=== PATIENT | female | born 1955 | race African-American/Black ===

== ENCOUNTER 2017-05-13 08:50 | Observation (INO) ==
--- NOTE | 2017-05-13 09:26 | EKG Report ---
Stationary ECG Study [facility] ER Test Date: 05/13/2017 8:57:36 AM Pat Name: YUAN JOHNSON Department: Room: Gender: F Chemical Analyst: : 1955 Requested by: Dallin Price Order Number: [id number] Reading MD: AROLDO CISNEROS Intervals [place] Rate: 63 P: 37 TN: 154 QRS: 73 QRSD: 92 T: 153 QT: 376 QTc: 383 Interpretive Statements SINUS RHYTHM POSSIBLE LEFT ATRIAL ENLARGEMENT SEPTAL INFARCT, AGE UNDETERMINED T WAVE ABNORMALITY, POSSIBLE LATERAL ISCHEMIA Electronically Signed On 05-13-17 13:11:17 CDT by AROLDO CISNEROS [email or web address]
[2017-05-13 09:50] LABS: Basophils % 0.5 % (0.0-0.8); Eosinophils # 0.1 10*3/uL (0.0-0.87); Eosinophils % 1.3 % (0.00-10.9); Hematocrit 45.9 VOL% (35.7-47.0); Hemoglobin 15.5 GM/DL (12.0-16.0); Immature Granulocytes % 0.4 %; Immature Granulocytes Absolute 0.02 #; Lymphocytes # 2.3 10*3/uL (1.4-4.0); Lymphocytes % 41.4 % (21.3-54.2); Mean Corpuscular HGB Conc 33.8 GM/DL (32-36); Mean Corpuscular Hemoglobin 32 PG (27-34); Mean Corpuscular Volume 93.3 FL (87-102); Mean Platelet Volume 12.1 FL (9.6-12.0); Monocytes # 0.6 10*3/uL (0.11-0.8); Monocytes % 10.4 % (1.7-12.7); Neutrophils # 2.5 10*3/uL (1.4-7.4); Platelet Count 190 T/CUMM (130-400); Red Blood Count 4.92 MC/CUMM (3.8-5.5); Red Cell Distribution Width 13.2 % (9.3-17.3); White Blood Count 5.5 T/CUMM (4-12)
[2017-05-13 10:26] LABS: Albumin 3.9 G/DL (3.4-5.0); Bilirubin,Total 0.8 MG/DL (0.2-1.0); Calcium 9.4 MG/DL (8.5-10.1); Osmolality,Calculated 279.4 MOS/KG (273-304); Potassium 3.7 MMOL/L (3.5-5.1); Total Protein 7.3 G/DL (6.4-8.3)
--- NOTE | 2017-05-13 10:35 | XRay Report ---
XR chest 1V portable Indication: Syncope, history of aortic dissection Comparison: Chest x-ray dated November 03, 2016 Technique: Single frontal view of the chest. Findings: Continued cardiomegaly status post sternotomy. No focal consolidation, pleural effusion, or pneumothorax. Visualized osseous and surrounding soft tissue structures appear grossly unchanged. IMPRESSION: Stable chest x-ray. Continued cardiomegaly without yahaira pulmonary edema. PROCEDURE INTERPRETED AT [facility] DEPARTMENT OF RADIOLOGY Final Report Signed by: Dr Meño Jane
[2017-05-13] MEDS ORDERED: SODIUM CHLORIDE 0.9% 1,000 ML IV STA (12:24)
--- NOTE | 2017-05-13 13:03 | CT Report ---
CT chest PE study Indication: Chest pain, elevated d-dimer, history of aortic dissection Comparison: Chest CT dated November 03, 2016 Technique: Multiple axial tomographic images of the chest were obtained after the administration of 100 cc Omnipaque 350 intravenous contrast. PE protocol followed. Coronal and sagittal maximum intensity projection images provided. Findings: Type A aortic dissection with aneurysmal dilatation of the ascending thoracic aorta measuring up to 6.3 cm appears similar to prior examination. Mild cardiomegaly. No segmental or larger pulmonary embolism demonstrated. Mild dependent change of the lungs present. No focal consolidation, pleural effusion, or pneumothorax. Status post sternotomy. Visualized upper abdomen demonstrates no acute abnormality. Visualized osseous and surrounding soft tissue structures appear grossly unchanged. IMPRESSION: No segmental or larger pulmonary embolism demonstrated. Grossly stable type A aortic dissection with aneurysmal dilatation of the ascending thoracic aorta. The CT exam was performed using one or more of the following dose reduction techniques: Automated exposure control, adjustment of the mA and/or kV according to patient size, or use of iterative reconstruction technique. PROCEDURE INTERPRETED AT [facility] DEPARTMENT OF RADIOLOGY Final Report Signed by: Dr Meño Jane
--- NOTE | 2017-05-13 13:41 | Emergency Department Note ---
Francisco Torres Manpreet, am scribing for, and in the presence of, Dallin Price Jr., MD 09:24. Albert Torres Marvin Jr., MD, personally performed the services described in this documentation, ascribed by Aris Singh in my presence, and it is both accurate and complete [id number] . Arrival - Arrival Chief Complaint: Chest Pain Stated Complaint: chest discomfort ED Nursing Triage Note: midsternal chest pain and left sided chest pain with NORRIS onset x 2 days with SOB Mode of Arrival: Ambulatory Limitations: No Limitations Source: Patient - History of Present Illness HPI Narrative: Pt is a 62 y/o female, with PMHx of HTN, who was advised to come to the ED by her physician. Pt states she has had dull and moderate chest discomfort that is on both sides of her chest for the past 6 days. The pain is intermittent and swallowing does something to the pain. Pt also feels like vomiting after swallowing. Pt also reports of being tired and RLQ abdominal pain the past 2 days that is now resolved. Pt states her throat is not sore. Pt was told to come to the ED because her PCP could only perform a EKG. No other pains/ complaints reported to the ED. Onset (ago): day(s) (2 days) Consistency: intermittent Severity: moderate Severity scale (1-10): 3 Date of Last Menstrual Period: margaret Allergies/Adverse Reactions: Allergies Allergy/AdvReac Type Severity Reaction Status Date / Time No Known Allergies Allergy Unverified 11/03/16 03:14 Home Medications: Home Medications Medication Instructions Recorded Confirmed Type Loratadine/Pseudoephedrine 1 each PO DAILY #10 tablet 11/03/16 Rx [Claritin-D 24 Hour Tablet] Review of System - Review of System 12 point system: reviewed and no additional remarkable complaints except as stated - Review of System Constitutional: Absent: chills, diaphoresis, fever Head/Ears/Nose/Throat: Absent: sore throat Respiratory: Absent: cough, respiratory distress Cardiovascular: Present: chest pain ("Chest discomfort"). Absent: dyspnea on exertion Gastrointestinal: Present: abdominal pain (The past 2 days but now resolved). Absent: nausea, vomiting, diarrhea Musculoskeletal: Absent: arm pain, back pain, neck pain Neurological: Absent: headache, numbness, paresthesias Medical,Surgical,& Family Hx - Medical History Cardio: History of: Hypertension, Cardiovascular Problems (aortic dissection that was repaired in [facility] 2012) - Social History Smoking Status: Never smoker Frequency of Alcohol Use: None Type of Drug Use: None Exam Physical Examination: General: Well-developed well-nourished, no apparent distress. Head: Normocephalic, atraumatic. Eyes: PERRLA, EOMI. Nose: No obvious acute deformities or discharge. Mouth: No obvious acute injury. Neck: Full range of motion without obvious pain. No midline tender to palpation. Lymphatic: no significant lymphadenopathy noted. Lungs: Clear to auscultation bilaterally, normal and equal air movement bilaterally, no obvious rales or wheezing. Heart: regular rate and rhythm, no obvious mummers. Chest wall: Slight tender to palpation which reproduces her pain noted. Abdomen: Soft nontender, nondistended, normal active bowel sounds. Very benign abdominal exam Skin: No obivous acute lesions noted Musculoskeletal: No gross deformities. Neurological: No focal findings, cranial nerves II through XII grossly normal. Psychiatric: Slightly anxious : Deferred Vital Signs: Vital Signs Temperature 98.1 F 05/13/17 08:52 Pulse Rate 61 05/13/17 09:15 Respiratory Rate 18 05/13/17 09:15 Blood Pressure 147/96 05/13/17 08:52 O2 Sat by Pulse Oximetry 100 05/13/17 09:14 Course Course Narrative: Differential diagnosis: Patient presents with chronic chest pain over the last couple of weeks. We will workup this chest pain but I think is highly unlikely to be an acute cardiac event, she is mildly anxious and she has had a previous aortic dissection. We will work this up using a d-dimer and x-rays as her screening test. The abdominal pain is resolved and physical exam is normal so no further workup for this at this time needed. Chest wall pain is a consideration, GE reflux, - Reevaluation(s) Reevaluation #1: Patient unchanged. I talked to the hospitalist to accept admission for further workup and evaluation. Time: 13:39 Results - Labs CBC & BMP: 05/13/17 09:44 05/13/17 09:44 Lab Results: I have reviewed the patients labs Labs: Laboratory Tests 05/13/17 09:23 D-Dimer, Quantitative 1.2 Laboratory Tests 05/13/17 09:44 Sodium 140 Potassium 3.7 Chloride 105 Carbon Dioxide 28 Anion Gap 10.7 BUN 15 Creatinine 1.00 GFR Calculation 75 BUN/Creatinine Ratio 15.00 Glucose 104 Calculated Osmolality 279.4 Calcium 9.4 Total Bilirubin 0.80 AST 11 ALT 19 Alkaline Phosphatase 50 Total Protein 7.3 Albumin 3.9 Globulin 3.4 Albumin/Globulin Ratio 1.1 Laboratory Tests 05/13/17 09:44 Troponin I < 0.015 - EKG EKG results: interpreted by ERMD (Heart rate 63, normal sinus rhythm, narrow complex QRS complexes without obvious acute ST changes) - Diagnostic Findings Procedure: Chest x-ray: report reviewed by me, image reviewed by me (Stable chest x-ray. Continued cardiomegaly without yahaira pulmonary edema.), CT - chest : report reviewed by me, image reviewed by me (CT Chest with con: No segmental or larger pulmonary embolism demonstrated. Grossly stable type A dissection with aneurysmal dilation of the ascending thoracic aorta.) Disposition Clinical Impression: Chest pain, Chronic stable aortic dissection Case discussed with: patient, patient's family Disposition: Still a Patient Condition: Stable Time of Disposition: 13:41
[2017-05-13] MEDS ORDERED: POTASSIUM CHLORIDE 20 MEQ TABLET PO PRN ×2 (15:22)
[2017-05-13] MEDS ORDERED: ONDANSETRON 4 MG/2 ML VIAL IV PRN (15:22)
[2017-05-13] MEDS ORDERED: MORPHINE 2 MG/1 ML SYRINGE IV PRN (15:22)
[2017-05-13] MEDS ORDERED: MAGNESIUM SULF RIDER 2 GM in PREMIX 1 EACH IV PRN (15:22)
[2017-05-13] MEDS ORDERED: ACETAMINOPHEN 325 MG TABLET PO PRN (15:22)
[2017-05-13] MEDS ORDERED: MAGNESIUM SULF RIDER 4 GM in PREMIX 1 EACH IV PRN (15:22)
[2017-05-13] MEDS ORDERED: DOCUSATE SODIUM 100 MG CAPSULE PO PRN (15:22)
[2017-05-13] MEDS ORDERED: LACTULOSE 20 GM/30 ML UDCUP PO PRN (15:22)
[2017-05-13] MEDS ORDERED: ENOXAPARIN 40 MG/0.4 ML SYRINGE SUBCUT SCH (15:30)
--- NOTE | 2017-05-13 15:36 | Hospitalist History & Physical ---
Assessment and Plan - Time spent with patient Time spent with patient: Greater than 30 minutes (1) Chest pain Status: Acute Assessment and plan: Atypical chest pain. Admit for observation with cardiac workup. Serial EKGs and cardiac enzymes. Echocardiogram. Consult cardiology for possible stress test in the a.m. Pain is reproducible to palpation. Toradol IV. Current Visit: Yes (2) Hypertension Status: Acute Assessment and plan: Continue home medications and add antihypertensives as needed. Current Visit: Yes (3) History of aortic dissection Status: Acute Assessment and plan: Aortic dissection in 2012 with surgical repair. CXR shows grossly stable type A aortic dissection with aneurysmal dilatation of the ascending thoracic aorta. Current Visit: Yes History of Present Illness Chief complaint: chest pain History of present illness: Ms. Carter is a 62 year old female with a past medical history significant for aortic dissection with surgical repair in 2012 and hypertension who presents to the ED today with complaints of progressively worsening chest pain since 4 days ago. The patient reports a "dull, constant" left-sided chest pain that radiates to the right side. She rates this pain a 7/ 10. She denies taking anything for the pain prior to arrival and notes that the pain has not subsided since admission. The pain is reproducible to palpation. She confirms headache, chest pain, shortness of breath, nausea with one vomiting episode. She denies pain on inspiration, change in bowel habits, diaphoresis, lower extremity edema. Lab work is significant for: WBC 5.5, hemoglobin 15.5, hematocrit 45.9, sodium 140, potassium 3.7, BUN 15, creatinine 1.0, serum glucose 104. Cardiac enzymes are negative, chest x-ray is negative for any cardiopulmonary abnormality, EKG shows normal sinus rhythm. Case been discussed with Dr. Elizondo, the patient will be admitted to the hospital medicine service for further evaluation and treatment. She is a full code. Home medications have been reviewed and reconciled. Home Medications Medication Instructions Recorded Confirmed Type Loratadine/Pseudoephedrine 1 each PO DAILY #10 tablet 11/03/16 Rx [Claritin-D 24 Hour Tablet] Allergies Allergy/AdvReac Type Severity Reaction Status Date / Time No Known Allergies Allergy Unverified 11/03/16 03:14 Medical,Surgical,& Family Hx - Medical History Cardio: History of: Hypertension, Cardiovascular Problems (aortic dissection that was repaired in [place] 2012) - Surgical History Cardiac Surgeries: Sugical HX of: Cardiac Surgery (aortic dissection) - Family History Family History: Reports;: Family Cancer (Mother: pancreatic cancer), Family Diabetes, Family Hypertension - Social History Smoking Status: Never smoker Frequency of Alcohol Use: None Type of Drug Use: None Marital Status: Lives With:: Spouse Functional capacity: independent ambulation 12 point system: reviewed and no additional remarkable complaints except as stated Exam - Constitutional Vitals: Period Temp Pulse Resp BP Sys/Ball Pulse Ox Last 24 Hr 98.1 F-98.1 F 57-71 18-20 147-163/87-101 97-100 Exam: General appearance: normal weight, mild distress - Head Head exam: Present: normocephalic, atraumatic - Eye Eye exam: Present: EOMI. Absent: conjunctival injection, nystagmus Pupils: Present: MJ, normal accommodation - ENT ENT exam: Present: normal exam, normal external ear exam - Neck Neck exam: Present: normal inspection. Absent: lymphadenopathy, tenderness, thyromegaly - Respiratory Respiratory exam: Present: clear to auscultation bilaterally. Absent: rales, rhonchi, wheezes - Cardiovascular Cardiovascular exam: Present: regular rate and rhythm. Absent: carotid bruit, gallop, rubs - GI/Abdominal GI/Abdominal exam: Present: normal bowel sounds. Absent: ascites, distended, mass - Extremities Exam Extremities exam: Present: normal inspection, normal capillary refill. Absent: edema - Back Exam Back exam: Absent: CVA tenderness (L), CVA tenderness (R) - Neurological Exam Neurological exam: Present: alert, oriented X3, CN II-XII intact, reflexes normal - Psychiatric Psychiatric exam: Present: normal affect, normal mood - Skin Skin exam: Present: normal color, warm, dry Results - Labs CBC & BMP: 05/13/17 09:44 05/13/17 09:44 Lab Results: I have reviewed the past 24 hour labs - EKG EKG results: interpreted by DOMENICO, sinus rhythm - Diagnostic Findings Procedure: Chest x-ray: image reviewed by me, report reviewed by me (no change since prior visit)
[2017-05-13] MEDS ORDERED: KETOROLAC 15 MG/1 ML VIAL IV ONE (16:10)
[2017-05-13] MEDS ORDERED: FLUTICASONE 50 MCG NASAL SPRAY 16 GM BOTTLE BOTH NARES PRN (16:11)
[2017-05-13 16:17] LABS: INR 1.1; PT Patient Result 12.1 SECS
[2017-05-13] MEDS ORDERED: hydrALAZINE 20 MG/1 ML VIAL IV PRN (16:18)
[2017-05-13] MEDS: SODIUM CHLORIDE 0.9% 1,000 ML IV SCH (16:34)
[2017-05-13 16:39] LABS: Magnesium 2.4 MG/DL (1.8-2.4); Thyroid Stimulating Hormone 0.586 uIU/ml (0.358-3.74)
[2017-05-13] MEDS: hydroCHLOROthiazide 12.5 MG CAPSULE PO SCH (18:05)
--- NOTE | 2017-05-13 18:57 | Cardiology Consult Note ---
Alfredo Torres Vanessa RN, am scribing for, and in the presence of, Last Rodriguez MD 18:52. Assessment and Plan - Time spent with patient Time spent with patient: Greater than 30 minutes (1) Atypical chest pain Status: Acute Assessment and plan: 62-year-old BF past medical history of hypertension, hyperlipidemia, sleep disorder, and aortic dissection status post repair 2011 presents with atypical chest pain/chest wall soreness 4 days. She has had recent URI, recently completed antibiotics. MAY 13, 2017 ASSESSMENT/PLAN: 1. ATYPICAL CHEST PAIN- Atypical. [place] to be noncardiac and related to coughing associated with recent URI. She had a recent stress test in January 2017 negative for ischemia and low risk for future cardiovascular event. Treat for musculoskeletal chest discomfort. Give tramadol 50 mg PO now and twice daily. Will not add Neurontin twice daily as she routinely takes Neurontin 300 mg by mouth nightly. Acetaminophen 325 mg now and then twice daily. Echocardiogram has been ordered. We will review. Monitor EKG. 2. HYPERTENSION-chronic; significant elevation since admission to hospital. Will add HCTZ 12.5 mg by mouth now and daily to antihypertensive regimen. Agree with as needed IV hydralazine for breakthrough hypertension. 3. DYSLIPIDEMIA-does not currently take a medication for this. Lipid panel July 2016 unremarkable. 4. SLEEP DISORDER-history of sleep disorder with previous polysomnography here at [facility]. Reiterated importance of using sleep machine each night. Her midline chest pain and left below breast pain is reproducible. It is exactly the same pain Chest wall pain probably relates to her coughing With an aortic dissection , PCP and her general drinking water technician might consider her being on a statin Treat chest wall pain-tramadol, Tylenol, gabapentin--Naprosyn if renal function is okay Treat hypertension by adding HCTZ Treat cough Serial enzymes and EKG If she rules out for MD overnight, let her go home with follow-up with Dr. Fonseca and the patient's PCP and treat for her chest wall pain. She had a negative stress test in January 2017. Current Visit: Yes (2) Dyslipidemia Status: Chronic Assessment and plan: SEE PLAN OF CARE LISTED ABOVE. Current Visit: Yes (3) Sleep disorder Status: Chronic Assessment and plan: SEE PLAN OF CARE LISTED ABOVE. Current Visit: Yes (4) History of aortic dissection Status: Chronic Assessment and plan: SEE PLAN OF CARE LISTED ABOVE. Current Visit: Yes (5) Hypertension Status: Chronic Assessment and plan: SEE PLAN OF CARE LISTED ABOVE. Current Visit: Yes (6) Dissecting aneurysm of thoracic aorta, [place] type A Status: Acute Current Visit: Yes History of Present Illness - Data of Consult Patient: known to practice within the last 3 years Consult date: 05/13/17 Requesting Physician: Jg Vaz - Consult Narrative Reason for consult: atypical CP History of present illness: PRIMARY HIGH RISK CASE MANAGER: DR. FONSECA Ms. Carter is a 62 year old black female with risk factors significant for: hypertension, hyperlipidemia, and has never smoked. Past medical history includes hypertensive heart disease, PVD, sleep disorder, LVH. She has a history of descending thoracic aortic aneurysm (Debakey type II, Mike type A , treated at [facility], with chronic dissection flap now. Last seen in clinic by Dr. Fonseca on March 09 for follow up of stress test results done on February 02 after patient reported some shortness of breath, worsened at night. Myocardial perfusion scan was normal with no evidence of ischemic, EF 78%. Previous echocardiogram in July 2016 with mild RA and large, mild MR and TR, PA pressure 24 mmHg, normal LV systolic function. Ms. Carter was admitted earlier this afternoon to [facility] tele[facility] for observation after she presented to [facility] ED with complaints of sternal chest pressure, headache, and some shortness of breath for 2 days. Patient reports she has had a recent upper respiratory infection, and she has recently finished antibiotics this past Tuesday. She has continued to feel poorly, over the past couple of days noticed some chest pain, right lower quadrant abdominal pain (now resolved), and contacted her PCP Dr. Cardenas. Dr. Cardenas's office instructed patient to report to the ER for evaluation when she reported she was having some chest pain. Chest x-ray with some cardiomegaly but no pulmonary edema, effusion, or infiltrate. Troponin level nondetectable. Lab work unremarkable. EKG demonstrates sinus rhythm and but no acute ischemic finding. D-dimer 1.2, and CT chest obtained which showed stable type a dissection with aneurysmal dilation of the ascending thoracic aorta and no evidence of PE. Initial BP 147/ 87, but since arrival to the ER and transferring to floor, it has drifted up to 191/101. Cardiology was asked to see for atypical chest pain. Patient awake and alert this afternoon in bed, and her is present with her at bedside. She does have a moderate amount sinus congestion, watery eyes. Patient reports that since her last visit with Dr. Fonseca, she has not had the shortness of breath she previously reported. She does report that she has some "insomnia" which has been worsened over the past few days. Patient and report that she has previously been diagnosed with sleep apnea, was prescribed sleep machine at night which she used, but after she started to feel "better," they felt it would be okay to not use it anymore. She has had significant coughing. She has some midsternal chest pain and left-sided chest which is reproducible, and is tender with palpation during exam. No associated anginal symptoms. Reports she did have some abdominal pain of the right lower quadrant prior to arrival but none currently. No hemoptysis, hematuria, hematochezia, melena. No dysphagia. Reports she has had some nausea, especially when attempting to swallow, but no vomiting. Denies having a significant sore throat. No orthopnea, PND, palpitations, or presyncope. Productive cough with clear sputum. No chills. CC: Dallin Elizondo III - Home Medications and Allergies Home Medications: Home Medications Medication Instructions Recorded Confirmed Type Aspirin EC Tab 81 mg PO DAILY 05/13/17 05/13/17 History Carvedilol Phosphate [Coreg CR] 80 mg PO DAILY 05/13/17 05/13/17 History Felodipine [Felodipine ER] 10 mg PO BEDTIME 05/13/17 05/13/17 History Fluticasone Propionate 2 spray BOTH NARES DAILY PRN 05/13/17 05/13/17 History [Fluticasone 50 mcg Nasal [place]] Gabapentin [Gabapentin] 300 mg PO BEDTIME 05/13/17 05/13/17 History hydrALAZINE TAB [Apresoline Tab] 100 mg PO TID 05/13/17 05/13/17 History Allergies/Adverse Reactions: Allergies Allergy/AdvReac Type Severity Reaction Status Date / Time No Known Allergies Allergy Unverified 11/03/16 03:14 - Constitutional Constitutional: Present: headache(s). Absent: anorexia, chills, fever(s), frequent falls, malaise, weakness, weight gain, weight loss - EENT Eyes: Present: requires corrective lense. Absent: blurry vision Ears: Absent: decreased hearing Nose, mouth and throat: Present: nasal congestion, sinus pressure. Absent: dysphagia, epistaxis, neck pain, throat swelling, tongue swelling, vertigo - Cardiovascular Cardiovascular: Present: chest pain at rest (Atypical; reproducible). Absent: chest pain with activity, claudication, diaphoresis, dyspnea, edema, radiating jaw, neck or arm pain, orthopnea, palpitations - Respiratory Respiratory: Present: cough. Absent: dyspnea, hemoptysis, dyspnea on exertion, change in phlegm color - Gastrointestinal Gastrointestinal: Absent: abdominal pain, constipation, diarrhea, dysphagia, early satiety, hematemesis, hematochezia, melena, nausea, vomiting, jaundice - Genitourinary Genitourinary: Absent: difficulty urinating, dysuria, flank pain, hematuria - Musculoskeletal Musculoskeletal: Absent: arthralgias, limited range of motion, myalgias - Neurological Neurological: Absent: abnormal gait, confusion, dizziness, syncope, tremor(s) - Psychiatric Psychiatric: Absent: anxiety, depression - Endocrine Endocrine: Absent: cold intolerance, heat intolerance - Hematologic/Lymphatic Hematologic/Lymphatic: Absent: easy bleeding, easy bruising Medical,Surgical,& Family Hx - Medical History Cardio: History of: Hypertension, PVD, Cardiovascular Problems (aortic dissection that was repaired in 2012) No history of: Cardiac Dysrhythmia, Pacemaker Psychological: History of: Anxiety Disorders Neurology: No history of: Seizures, TIA HEENT: History of: Eye Problem Endocrine: History of: Dyslipidemia No history of: Thyroid Disorder Rheumatology: No history of;: Rheumatoid Arthritis Respiratory: History of: Obstructive Sleep Apnea No history of: COPD Renal: No history of: Renal Problems Genitourinary: No history of: Bladder Problem, Kidney Stones Gastrointestinal: No history of: GERD, Hepatitis, Liver Problems, Pancreatitis Musculoskeletal: No history of: Degenerative Disk Disease Hematology: No history of: Anemia, Blood Transfusion Reaction Reproductive: No history of: Breast Cancer Other: No history of: Cancer - Surgical History Cardiac Surgeries: Sugical HX of: Cardiac Catheterization, Cardiac Surgery ( aortic dissection) HEENT Surgeries: Patient denies: Carotid Endarterectomy - Family History Family History: Reports;: Family Cancer (Mother: pancreatic cancer), Family Diabetes, Family Hypertension - Social History Smoking Status: Never smoker Frequency of Alcohol Use: None Type of Drug Use: None Marital Status: Lives With:: Spouse Functional capacity: independent ambulation Physical Examination Vital Signs Temp Pulse Resp BP Pulse Ox 98.1 F 71 20 147/96 97 05/13/17 08:52 05/13/17 08:52 05/13/17 08:52 05/13/17 08:52 05/13/17 08:52 General: Present: No Apparent Distress HEENT: Present: PERRL, Normocephaly. Absent: Jaundice Neck: Present: Supple Neck, Midline Trachea, No JVD/HJR, No Bruit Cardiac: Present: Reg Rate and Rhythm, Systolic Murmur, Other (Slightly coarse breath sounds bibasilarly). Absent: Tachycardia, Bradycardia Lungs: Present: No Wheeze, Rales, Rhonchi, Other. Absent: Oxygen Neuro: Present: Grossly Intact. Absent: Weakness, Resting Tremor, Essential Tremor Abdomen: Present: Soft, Active Bowel Sounds. Absent: Ascites, Tender, Firm Skin: Present: Clear. Absent: Rash, Suspicious Lesions Musculoskeletal: Present: No Fluid Collection, Normal Range of Motion Extremities: Present: No Clubbing, No Cyanosis, No Edema, Normal Upper Extr. Pulses, Normal Lower Extr. Pulses, Capillary Refill (Normal) Result/EKG - Labs CBC & BMP: 05/13/17 09:44 05/13/17 09:44 Lab Results: I have reviewed the past 24 hour labs Labs: Laboratory Results - last 24 hr 05/13/17 05/13/17 05/13/17 09:23 09:44 09:44 WBC 5.5 RBC 4.92 Hgb 15.5 Hct 45.9 MCV 93.3 MCH 32 MCHC 33.8 RDW 13.2 Plt Count 190 MPV 12.1 H Neut % (Auto) 46.0 Lymph % (Auto) 41.4 [place] % (Auto) 10.4 Eos % (Auto) 1.3 Baso % (Auto) 0.5 Neut # (Auto) 2.5 Lymph # (Auto) 2.3 [place] # (Auto) 0.6 Eos # (Auto) 0.1 Baso # (Auto) 0.0 Immature Gran % 0.4 Nucleated RBC % 0.0 Immature Gran # 0.02 Nucleated RBCs # 0.00 Immature Plt Fraction 0.0 D-Dimer, Quantitative 1.2 Sodium 140 Potassium 3.7 Chloride 105 Carbon Dioxide 28 Anion Gap 10.7 BUN 15 Creatinine 1.00 GFR Calculation 75 BUN/Creatinine Ratio 15.00 Glucose 104 Calculated Osmolality 279.4 Calcium 9.4 Total Bilirubin 0.80 AST 11 ALT 19 Alkaline Phosphatase 50 Troponin I Total Protein 7.3 Albumin 3.9 Globulin 3.4 Albumin/Globulin Ratio 1.1 05/13/17 09:44 WBC RBC Hgb Hct MCV MCH MCHC RDW Plt Count MPV Neut % (Auto) Lymph % (Auto) [place] % (Auto) Eos % (Auto) Baso % (Auto) Neut # (Auto) Lymph # (Auto) [place] # (Auto) Eos # (Auto) Baso # (Auto) Immature Gran % Nucleated RBC % Immature Gran # Nucleated RBCs # Immature Plt Fraction D-Dimer, Quantitative Sodium Potassium Chloride Carbon Dioxide Anion Gap BUN Creatinine GFR Calculation BUN/Creatinine Ratio Glucose Calculated Osmolality Calcium Total Bilirubin AST ALT Alkaline Phosphatase Troponin I < 0.015 Total Protein Albumin Globulin Albumin/Globulin Ratio - Diagnostic Findings Procedure: Chest x-ray: image reviewed by me, report reviewed by me, CT - chest : image reviewed by me, report reviewed by me - EKG EKG results: interpreted by me, no acute changes EKG shows: sinus rhythm I, Last Rodriguez MD, personally performed the services described in this documentation, ascribed by Ale Fuentes RN in my presence, and it is both accurate and complete [id number] .
[2017-05-13] MEDS ORDERED: NAPROXEN 250 MG TABLET PO ONE (18:59)
[2017-05-13] MEDS: ACETAMINOPHEN 325 MG TABLET PO SCH (20:53)
[2017-05-13] MEDS: traMADol 50 MG TABLET PO SCH (20:53)
[2017-05-13] MEDS ORDERED: GABAPENTIN 300 MG CAPSULE PO SCH (21:00)
[2017-05-13] MEDS ORDERED: FELODIPINE 5 MG TABLET PO SCH (21:00)
[2017-05-14 04:32] LABS: Basophils % 0.5 % (0.0-0.8); Eosinophils # 0.1 10*3/uL (0.0-0.87); Hematocrit 41.5 VOL% (35.7-47.0); Hemoglobin 14.1 GM/DL (12.0-16.0); Immature Granulocytes % 0.2 %; Immature Granulocytes Absolute 0.01 #; Lymphocytes # 2.5 10*3/uL (1.4-4.0); Lymphocytes % 43.8 % (21.3-54.2); Mean Corpuscular Hemoglobin 32 PG (27-34); Mean Corpuscular Volume 93.5 FL (87-102); Monocytes # 0.6 10*3/uL (0.11-0.8); Monocytes % 9.9 % (1.7-12.7); Neutrophils # 2.5 10*3/uL (1.4-7.4); Neutrophils % 43.6 % (38.7-73.9); Platelet Count 171 T/CUMM (130-400); Red Blood Count 4.44 MC/CUMM (3.8-5.5); Red Cell Distribution Width 13.1 % (9.3-17.3); White Blood Count 5.6 T/CUMM (4-12)
[2017-05-14 05:04] LABS: Calcium 8.5 MG/DL (8.5-10.1); Osmolality,Calculated 277.5 MOS/KG (273-304); Potassium 3.7 MMOL/L (3.5-5.1); VLDL CHOLESTEROL 26.8 MG/DL
[2017-05-14] MEDS: SODIUM CHLORIDE 0.9% 1,000 ML IV SCH (06:15)
[2017-05-14 07:50] VITALS: BP 142/86
--- NOTE | 2017-05-14 08:47 | EKG Report ---
Stationary ECG Study [facility] Test Date: 05/13/2017 5:00:24 PM Pat Name: YUAN JOHNSON Department: Room: 266 Gender: F [employer] Consultant: LAWRENCE : [id number] Requested by: Jg Vaz Order Number: [id number] Reading MD: AROLDO CISNEROS Intervals [place] Rate: 59 P: 1 HI: 158 QRS: -49 QRSD: 94 T: 189 QT: 414 QTc: 414 Interpretive Statements SINUS RHYTHM WITH SINUS ARRHYTHMIA LOW QRS VOLTAGE IN PRECORDIAL LEADS LEFT ANTERIOR FASCICULAR BLOCK MODERATE T-WAVE ABNORMALITY, CONSIDER ANTERIOR ISCHEMIA Electronically Signed On 05-14-17 11:31:35 CDT by AROLDO CISNEROS [email or web address]
[2017-05-14] MEDS ORDERED: PANTOPRAZOLE 40 MG TABLET PO SCH (09:00)
[2017-05-14] MEDS ORDERED: NAPROXEN 250 MG TABLET PO ONE (09:00)
[2017-05-14] MEDS ORDERED: CARVEDILOL CR 40 MG CAPSULE PO SCH (09:00)
[2017-05-14] MEDS ORDERED: ASPIRIN EC 81 MG TABLET PO SCH (09:00)
[2017-05-14] MEDS: traMADol 50 MG TABLET PO SCH (09:11)
[2017-05-14] MEDS: ACETAMINOPHEN 325 MG TABLET PO SCH (09:11)
[2017-05-14] MEDS: hydroCHLOROthiazide 12.5 MG CAPSULE PO SCH (09:11)
--- NOTE | 2017-05-14 09:31 | Discharge Summary ---
Hospital Course - Hospital Course Hospital Course: Ms. Carter is a 62-year-old -Spanish female with multiple risk factors who was admitted for evaluation of atypical chest pain. She has been followed in the clinic by Dr. Fonseca. She did have a stress study in January 2017 which was normal with no evidence of ischemia and ejection fraction noted at 78%. On this admission her lab work was unremarkable. EKG revealed sinus rhythm with no acute changes. D-dimer was noted to be 1.2. CT chest obtained showed stable type a dissection with aneurysmal dilatation of the ascending thoracic aorta and no evidence of PE. She was admitted to the hospitalist service and was treated medically. Serial cardiac isoenzymes were performed and remained negative. At this time is felt that she can be discharged home with treatment for chest wall pain and follow-up with Dr. Fonseca on an outpatient basis. - Time spent with patient Time with patient DS: Less than 30 minutes Diagnosis - Discharge Diagnosis (1) Chest pain Status: Acute (2) Hypertension Status: Chronic (3) Dyslipidemia Status: Chronic (4) Dissecting aneurysm of thoracic aorta, Mike type A Status: Acute Discharge Plan - Discharge Data Disposition: Disch To Home/Self Care Condition at Discharge: Stable Discharge Diet: advance to your usual diet Activity: resume usual activities as tolerated Hygiene: no restrictions Weight Bearing at Discharge: full weight bearing Driving: no restrictions Contact your physician if you experience:: fever over 101, Redness or swelling, Shortness of breath, Bleeding - Discharge Medications New traMADol TAB [Ultram] 50 mg PO BID #20 tablet Continue Felodipine [Felodipine ER] 10 mg PO BEDTIME Aspirin EC Tab 81 mg PO DAILY Fluticasone Propionate [Fluticasone 50 mcg Nasal [place]] 2 spray BOTH NARES DAILY PRN PRN Reason: Congestion Carvedilol Phosphate [Coreg CR] 80 mg PO DAILY hydrALAZINE TAB [Apresoline Tab] 100 mg PO TID Gabapentin 300 mg PO BEDTIME - Follow Up or Referral Follow Up: Khushi Fonseca MD [Physician] - 2 Weeks - Forms/Instructions Exam - Constitutional Vitals: Period Temp Pulse Resp BP Sys/Ball Pulse Ox Last 24 Hr 97.2 F-99.0 F 54-64 16-20 132-191/79-101 94-100 General appearance: no acute distress - Head Head exam: Present: normocephalic, atraumatic - Eye Eye exam: Present: EOMI Pupils: Present: MJ - ENT ENT exam: Present: normal oropharynx - Neck Neck exam: Present: normal inspection - Respiratory Respiratory exam: Present: clear to auscultation bilaterally - Cardiovascular Cardiovascular exam: Present: regular rate and rhythm, systolic murmur - GI/Abdominal GI/Abdominal exam: Present: normal bowel sounds, soft. Absent: tenderness, rebound - Extremities Exam Extremities exam: Absent: calf tenderness, edema - Back Exam Back exam: Present: normal inspection - Neurological Exam Neurological exam: Present: alert, oriented X3, CN II-XII intact. Absent: motor sensory deficit - Psychiatric Psychiatric exam: Present: normal affect, normal mood. Absent: agitated, anxious - Skin Skin exam: Present: warm, dry. Absent: erythema Discharge Results Procedures and tests throughout hospitalization: Pending Orders 05/15/17 04:00 Basic Metabolic Panel IN AM Comp Blood Count Auto Diff IN AM Labs on day of discharge: Labs from last 24 hours 05/14/17 05/14/17 05/13/17 03:57 03:57 21:20 WBC 5.6 RBC 4.44 Hgb 14.1 Hct 41.5 MCV 93.5 MCH 32 MCHC 34.0 RDW 13.1 Plt Count 171 MPV 13.0 H Neut % (Auto) 43.6 Lymph % (Auto) 43.8 [place] % (Auto) 9.9 Eos % (Auto) 2.0 Baso % (Auto) 0.5 Neut # (Auto) 2.5 Lymph # (Auto) 2.5 [place] # (Auto) 0.6 Eos # (Auto) 0.1 Baso # (Auto) 0.0 Immature Gran % 0.2 Nucleated RBC % 0.0 Immature Gran # 0.01 Nucleated RBCs # 0.00 Immature Plt Fraction 0.0 INR PT Patient/Control Mix D-Dimer, Quantitative Sodium 139 Potassium 3.7 Chloride 103 Carbon Dioxide 29 Anion Gap 10.7 BUN 15 Creatinine 0.90 GFR Calculation 83 BUN/Creatinine Ratio 16.00 Glucose 105 Hemoglobin A1c Calculated Osmolality 277.5 Calcium 8.5 Magnesium Total Bilirubin AST ALT Alkaline Phosphatase Troponin I < 0.015 Total Protein Albumin Globulin Albumin/Globulin Ratio Triglycerides 134 Cholesterol 174 LDL Cholesterol 95.0 VLDL Cholesterol 26.8 HDL Cholesterol 58 Heart Disease Risk Ratio 3.00 Free T4 TSH 3rd Generation 08/05/13/17 05/13/17 18:53 15:56 15:56 WBC RBC Hgb Hct MCV MCH MCHC RDW Plt Count MPV Neut % (Auto) Lymph % (Auto) [place] % (Auto) Eos % (Auto) Baso % (Auto) Neut # (Auto) Lymph # (Auto) [place] # (Auto) Eos # (Auto) Baso # (Auto) Immature Gran % Nucleated RBC % Immature Gran # Nucleated RBCs # Immature Plt Fraction INR 1.1 PT Patient/Control Mix 12.1 D-Dimer, Quantitative Sodium Potassium Chloride Carbon Dioxide Anion Gap BUN Creatinine GFR Calculation BUN/Creatinine Ratio Glucose Hemoglobin A1c 5.8 Calculated Osmolality Calcium Magnesium Total Bilirubin AST ALT Alkaline Phosphatase Troponin I < 0.015 Total Protein Albumin Globulin Albumin/Globulin Ratio Triglycerides Cholesterol LDL Cholesterol VLDL Cholesterol HDL Cholesterol Heart Disease Risk Ratio Free T4 TSH 3rd Generation 05/13/17 05/13/17 05/13/17 15:55 15:55 15:55 WBC RBC Hgb Hct MCV MCH MCHC RDW Plt Count MPV Neut % (Auto) Lymph % (Auto) [place] % (Auto) Eos % (Auto) Baso % (Auto) Neut # (Auto) Lymph # (Auto) [place] # (Auto) Eos # (Auto) Baso # (Auto) Immature Gran % Nucleated RBC % Immature Gran # Nucleated RBCs # Immature Plt Fraction INR PT Patient/Control Mix D-Dimer, Quantitative Sodium Potassium Chloride Carbon Dioxide Anion Gap BUN Creatinine GFR Calculation BUN/Creatinine Ratio Glucose Hemoglobin A1c Calculated Osmolality Calcium Magnesium 2.4 Total Bilirubin AST ALT Alkaline Phosphatase Troponin I < 0.015 Total Protein Albumin Globulin Albumin/Globulin Ratio Triglycerides Cholesterol LDL Cholesterol VLDL Cholesterol HDL Cholesterol Heart Disease Risk Ratio Free T4 1.14 TSH 3rd Generation 0.586 05/13/17 05/13/17 05/13/17 09:44 09:44 09:44 WBC 5.5 RBC 4.92 Hgb 15.5 Hct 45.9 MCV 93.3 MCH 32 MCHC 33.8 RDW 13.2 Plt Count 190 MPV 12.1 H Neut % (Auto) 46.0 Lymph % (Auto) 41.4 [place] % (Auto) 10.4 Eos % (Auto) 1.3 Baso % (Auto) 0.5 Neut # (Auto) 2.5 Lymph # (Auto) 2.3 [place] # (Auto) 0.6 Eos # (Auto) 0.1 Baso # (Auto) 0.0 Immature Gran % 0.4 Nucleated RBC % 0.0 Immature Gran # 0.02 Nucleated RBCs # 0.00 Immature Plt Fraction 0.0 INR PT Patient/Control Mix D-Dimer, Quantitative Sodium 140 Potassium 3.7 Chloride 105 Carbon Dioxide 28 Anion Gap 10.7 BUN 15 Creatinine 1.00 GFR Calculation 75 BUN/Creatinine Ratio 15.00 Glucose 104 Hemoglobin A1c Calculated Osmolality 279.4 Calcium 9.4 Magnesium Total Bilirubin 0.80 AST 11 ALT 19 Alkaline Phosphatase 50 Troponin I < 0.015 Total Protein 7.3 Albumin 3.9 Globulin 3.4 Albumin/Globulin Ratio 1.1 Triglycerides Cholesterol LDL Cholesterol VLDL Cholesterol HDL Cholesterol Heart Disease Risk Ratio Free T4 TSH 3rd Generation 05/13/17 09:23 WBC RBC Hgb Hct MCV MCH MCHC RDW Plt Count MPV Neut % (Auto) Lymph % (Auto) [place] % (Auto) Eos % (Auto) Baso % (Auto) Neut # (Auto) Lymph # (Auto) [place] # (Auto) Eos # (Auto) Baso # (Auto) Immature Gran % Nucleated RBC % Immature Gran # Nucleated RBCs # Immature Plt Fraction INR PT Patient/Control Mix D-Dimer, Quantitative 1.2 Sodium Potassium Chloride Carbon Dioxide Anion Gap BUN Creatinine GFR Calculation BUN/Creatinine Ratio Glucose Hemoglobin A1c Calculated Osmolality Calcium Magnesium Total Bilirubin AST ALT Alkaline Phosphatase Troponin I Total Protein Albumin Globulin Albumin/Globulin Ratio Triglycerides Cholesterol LDL Cholesterol VLDL Cholesterol HDL Cholesterol Heart Disease Risk Ratio Free T4 TSH 3rd Generation DS: Provider Date of admission: 05/13/17 13:51 Primary care physician: . No PCP Attending physician on admission: Dallin Elizondo III Consults: 05/13/17 15:22 Consult to Physician [CONS] Routine Comment: Atypical chest pain Consulting Provider: Cardiology - [facility] Person Notified: Date Notified: 05/13/17 Time Notified: 16:06 05/13/17 15:53 Consult to Dietitian [CONS] Routine Reason for Dietitian: Other Discharging clinician: Nidhi Waldrop Expected date of discharge: 05/14/17
--- NOTE | 2017-05-14 09:49 | Cardiology Progress Note ---
<Allyssa Camacho E - Last Filed: 05/14/17 09:49> Assessment and Plan - Time spent with patient Time spent with patient: Greater than 30 minutes (1) Atypical chest pain Status: Acute Assessment and plan: SEE PLAN OF CARE LISTED BELOW (2) Dissecting aneurysm of thoracic aorta, [place] type A Status: Resolved Assessment and plan: SEE PLAN OF CARE LISTED BELOW (3) Dyslipidemia Status: Chronic Assessment and plan: SEE PLAN OF CARE LISTED BELOW (4) Hypertension Status: Chronic Assessment and plan: SEE PLAN OF CARE LISTED BELOW (5) Sleep disorder Status: Chronic Assessment and plan: SEE PLAN OF CARE LISTED BELOW Cardiology - PN: Subj Interval history: PRIMARY MARKETING DEVELOPER: DR. FONSECA MAY 13, 2017: Ms. Carter is a 62 year old black female with risk factors significant for: hypertension, hyperlipidemia, and has never smoked. Past medical history includes hypertensive heart disease, PVD, sleep disorder, LVH. She has a history of descending thoracic aortic aneurysm ([place] type II, [place] type A, treated at [facility], with chronic dissection flap now. Last seen in clinic by Dr. Fonseca on March 09 for follow up of stress test results done on February 02 after patient reported some shortness of breath, worsened at night. Myocardial perfusion scan was normal with no evidence of ischemic, EF 78%. Previous echocardiogram in July 2016 with mild RA and large, mild MR and TR , PA pressure 24 mmHg, normal LV systolic function. Ms. Carter was admitted earlier this afternoon to [place]'s telemetry unit for observation after she presented to [place]'s ED with complaints of sternal chest pressure, headache, and some shortness of breath for 2 days. Patient reports she has had a recent upper respiratory infection, and she has recently finished antibiotics this past Tuesday. She has continued to feel poorly, over the past couple of days noticed some chest pain, right lower quadrant abdominal pain (now resolved), and contacted her PCP Dr. Cardenas. Dr. Cardenas's office instructed patient to report to the ER for evaluation when she reported she was having some chest pain. Chest x-ray with some cardiomegaly but no pulmonary edema, effusion, or infiltrate. Troponin level nondetectable. Lab work unremarkable. EKG demonstrates sinus rhythm and but no acute ischemic finding. D-dimer 1.2, and CT chest obtained which showed stable type a dissection with aneurysmal dilation of the ascending thoracic aorta and no evidence of PE. Initial BP 147/ 87, but since arrival to the ER and transferring to floor, it has drifted up to 191/101. Cardiology was asked to see for atypical chest pain. Patient awake and alert this afternoon in bed, and her is present with her at bedside. She does have a moderate amount sinus congestion, watery eyes. Patient reports that since her last visit with Dr. Fonseca, she has not had the shortness of breath she previously reported. She does report that she has some "insomnia" which has been worsened over the past few days. Patient and report that she has previously been diagnosed with sleep apnea, was prescribed sleep machine at night which she used, but after she started to feel "better," they felt it would be okay to not use it anymore. She has had significant coughing. She has some midsternal chest pain and left-sided chest which is reproducible, and is tender with palpation during exam. No associated anginal symptoms. Reports she did have some abdominal pain of the right lower quadrant prior to arrival but none currently. No hemoptysis, hematuria, hematochezia, melena. No dysphagia. Reports she has had some nausea, especially when attempting to swallow, but no vomiting. Denies having a significant sore throat. No orthopnea, PND, palpitations, or presyncope. Productive cough with clear sputum. No chills. MAY 14, 2017: Overnight, Mrs. Carter is doing much better. Her musculoskeletal chest pain is improved. Vital signs are stable. She has been ambulating without difficulty. She is scheduled for discharge home today. She has an appointment with Dr. Fonseca and has been encouraged to keep this follow-up appointment. I will further discuss with Dr. Rodriguez and await additional recommendations. ASSESSMENT/PLAN: 1. ATYPICAL CHEST PAIN - Atypical. [place] to be musculoskeletal in nature. Recent stress test in January 2017 negative for ischemia and low risk for future cardiovascular event. Recommend Tramadol 50 mg PO now and twice daily. Will not add Neurontin twice daily as she routinely takes Neurontin 300 mg by mouth nightly. Acetaminophen 325 mg twice daily. 2. HYPERTENSION - chronic; significant elevation since admission to hospital. HCTZ 12.5 mg added to medication regimen and this has improved her blood 3. SLEEP DISORDER - history of sleep disorder with previous polysomnography here at [facility]. Reiterated importance of using sleep machine each night. Exam (Progress Note) - Constitutional Vitals: Period Temp Pulse Resp BP Sys/Ball Pulse Ox Last 24 Hr 97.2 F-99.0 F 54-64 16-20 132-191/79-101 94-100 Exam: General: [Appears well with no apparent distress.] [Pleasant and cooperative. ] [Appears comfortable.] HEENT: [PERRL, normocephalic, atraumatic. Mucous membranes moist. No jaundice noted. Conjunctiva moist and clear, sclerae anicteric] Neck: No JVD/HJR, no thyromegaly or lymphadenopathy noted. No carotid bruit appreciated Cardiac: [Regular rate and rhythm.] [No murmur rub or gallop.] Lungs: [Clear to auscultation without accessory muscle use to assist the respiratory pattern.] Not requiring oxygen Abdomen: Soft, bowel sounds normoactive. Nontender and nondistended. No abdominal bruit or thrill noted. No masses noted. Musculoskeletal: No fluid collection. Decreased range of motion is noted. Extremities: No clubbing, cyanosis noted. [ No edema noted.] Upper extremity pulses 2+. Lower extremity pulses 2+. Capillary refill less than 3 seconds. Skin: No unusual lesions or rashes. No skin breakdown appreciated. Neuro: Awake, alert and oriented 3. Moves all extremities well without hemiparesis or paralysis. No essential tremor is appreciated. Result/EKG - Labs CBC & BMP: 05/14/17 03:57 05/14/17 03:57 Lab Results: I have reviewed the past 24 hour labs Labs: Laboratory Results - last 24 hr 05/13/17 05/13/17 05/13/17 09:23 09:44 09:44 WBC 5.5 RBC 4.92 Hgb 15.5 Hct 45.9 MCV 93.3 MCH 32 MCHC 33.8 RDW 13.2 Plt Count 190 MPV 12.1 H Neut % (Auto) 46.0 Lymph % (Auto) 41.4 [place] % (Auto) 10.4 Eos % (Auto) 1.3 Baso % (Auto) 0.5 Neut # (Auto) 2.5 Lymph # (Auto) 2.3 [place] # (Auto) 0.6 Eos # (Auto) 0.1 Baso # (Auto) 0.0 Immature Gran % 0.4 Nucleated RBC % 0.0 Immature Gran # 0.02 Nucleated RBCs # 0.00 Immature Plt Fraction 0.0 INR PT Patient/Control Mix D-Dimer, Quantitative 1.2 Sodium 140 Potassium 3.7 Chloride 105 Carbon Dioxide 28 Anion Gap 10.7 BUN 15 Creatinine 1.00 GFR Calculation 75 BUN/Creatinine Ratio 15.00 Glucose 104 Hemoglobin A1c Calculated Osmolality 279.4 Calcium 9.4 Magnesium Total Bilirubin 0.80 AST 11 ALT 19 Alkaline Phosphatase 50 Troponin I Total Protein 7.3 Albumin 3.9 Globulin 3.4 Albumin/Globulin Ratio 1.1 Triglycerides Cholesterol LDL Cholesterol VLDL Cholesterol HDL Cholesterol Heart Disease Risk Ratio Free T4 TSH 3rd Generation 05/13/17 05/13/17 05/13/17 09:44 15:55 15:55 WBC RBC Hgb Hct MCV MCH MCHC RDW Plt Count MPV Neut % (Auto) Lymph % (Auto) [place] % (Auto) Eos % (Auto) Baso % (Auto) Neut # (Auto) Lymph # (Auto) [place] # (Auto) Eos # (Auto) Baso # (Auto) Immature Gran % Nucleated RBC % Immature Gran # Nucleated RBCs # Immature Plt Fraction INR PT Patient/Control Mix D-Dimer, Quantitative Sodium Potassium Chloride Carbon Dioxide Anion Gap BUN Creatinine GFR Calculation BUN/Creatinine Ratio Glucose Hemoglobin A1c Calculated Osmolality Calcium Magnesium 2.4 Total Bilirubin AST ALT Alkaline Phosphatase Troponin I < 0.015 Total Protein Albumin Globulin Albumin/Globulin Ratio Triglycerides Cholesterol LDL Cholesterol VLDL Cholesterol HDL Cholesterol Heart Disease Risk Ratio Free T4 1.14 TSH 3rd Generation 0.586 05/13/17 05/13/17 05/13/17 15:55 15:56 15:56 WBC RBC Hgb Hct MCV MCH MCHC RDW Plt Count MPV Neut % (Auto) Lymph % (Auto) [place] % (Auto) Eos % (Auto) Baso % (Auto) Neut # (Auto) Lymph # (Auto) [place] # (Auto) Eos # (Auto) Baso # (Auto) Immature Gran % Nucleated RBC % Immature Gran # Nucleated RBCs # Immature Plt Fraction INR 1.1 PT Patient/Control Mix 12.1 D-Dimer, Quantitative Sodium Potassium Chloride Carbon Dioxide Anion Gap BUN Creatinine GFR Calculation BUN/Creatinine Ratio Glucose Hemoglobin A1c 5.8 Calculated Osmolality Calcium Magnesium Total Bilirubin AST ALT Alkaline Phosphatase Troponin I < 0.015 Total Protein Albumin Globulin Albumin/Globulin Ratio Triglycerides Cholesterol LDL Cholesterol VLDL Cholesterol HDL Cholesterol Heart Disease Risk Ratio Free T4 TSH 3rd Generation 05/13/17 05/13/17 05/14/17 18:53 21:20 03:57 WBC 5.6 RBC 4.44 Hgb 14.1 Hct 41.5 MCV 93.5 MCH 32 MCHC 34.0 RDW 13.1 Plt Count 171 MPV 13.0 H Neut % (Auto) 43.6 Lymph % (Auto) 43.8 [place] % (Auto) 9.9 Eos % (Auto) 2.0 Baso % (Auto) 0.5 Neut # (Auto) 2.5 Lymph # (Auto) 2.5 [place] # (Auto) 0.6 Eos # (Auto) 0.1 Baso # (Auto) 0.0 Immature Gran % 0.2 Nucleated RBC % 0.0 Immature Gran # 0.01 Nucleated RBCs # 0.00 Immature Plt Fraction 0.0 INR PT Patient/Control Mix D-Dimer, Quantitative Sodium Potassium Chloride Carbon Dioxide Anion Gap BUN Creatinine GFR Calculation BUN/Creatinine Ratio Glucose Hemoglobin A1c Calculated Osmolality Calcium Magnesium Total Bilirubin AST ALT Alkaline Phosphatase Troponin I < 0.015 < 0.015 Total Protein Albumin Globulin Albumin/Globulin Ratio Triglycerides Cholesterol LDL Cholesterol VLDL Cholesterol HDL Cholesterol Heart Disease Risk Ratio Free T4 TSH 3rd Generation 05/14/17 03:57 WBC RBC Hgb Hct MCV MCH MCHC RDW Plt Count MPV Neut % (Auto) Lymph % (Auto) [place] % (Auto) Eos % (Auto) Baso % (Auto) Neut # (Auto) Lymph # (Auto) [place] # (Auto) Eos # (Auto) Baso # (Auto) Immature Gran % Nucleated RBC % Immature Gran # Nucleated RBCs # Immature Plt Fraction INR PT Patient/Control Mix D-Dimer, Quantitative Sodium 139 Potassium 3.7 Chloride 103 Carbon Dioxide 29 Anion Gap 10.7 BUN 15 Creatinine 0.90 GFR Calculation 83 BUN/Creatinine Ratio 16.00 Glucose 105 Hemoglobin A1c Calculated Osmolality 277.5 Calcium 8.5 Magnesium Total Bilirubin AST ALT Alkaline Phosphatase Troponin I Total Protein Albumin Globulin Albumin/Globulin Ratio Triglycerides 134 Cholesterol 174 LDL Cholesterol 95.0 VLDL Cholesterol 26.8 HDL Cholesterol 58 Heart Disease Risk Ratio 3.00 Free T4 TSH 3rd Generation - EKG EKG results: interpreted by me EKG shows: sinus rhythm Specialty Discharge - Follow Up or Referrals Follow up with: Khushi Fonseca MD [Physician] - 2 Weeks <Last Rodriguez - Last Filed: 05/14/17 14:59> Assessment and Plan (1) Atypical chest pain Status: Acute (2) Dyslipidemia Status: Chronic (3) Sleep disorder Status: Chronic (4) History of aortic dissection Status: Chronic (5) Hypertension Status: Chronic Exam (Progress Note) - Constitutional Vitals: Period Temp Pulse Resp BP Sys/Ball Pulse Ox Last 24 Hr 97.2 F-99.0 F 54-64 16-20 132-191/79-101 94-99 Result/EKG - Labs CBC & BMP: 05/14/17 03:57 05/14/17 03:57 Labs: Laboratory Results - last 24 hr 05/13/17 05/13/17 05/13/17 15:55 15:55 15:55 WBC RBC Hgb Hct MCV MCH MCHC RDW Plt Count MPV Neut % (Auto) Lymph % (Auto) [place] % (Auto) Eos % (Auto) Baso % (Auto) Neut # (Auto) Lymph # (Auto) [place] # (Auto) Eos # (Auto) Baso # (Auto) Immature Gran % Nucleated RBC % Immature Gran # Nucleated RBCs # Immature Plt Fraction INR PT Patient/Control Mix Sodium Potassium Chloride Carbon Dioxide Anion Gap BUN Creatinine GFR Calculation BUN/Creatinine Ratio Glucose Hemoglobin A1c Calculated Osmolality Calcium Magnesium 2.4 Troponin I < 0.015 Triglycerides Cholesterol LDL Cholesterol VLDL Cholesterol HDL Cholesterol Heart Disease Risk Ratio Free T4 1.14 TSH 3rd Generation 0.586 05/13/17 05/13/17 05/13/17 15:56 15:56 18:53 WBC RBC Hgb Hct MCV MCH MCHC RDW Plt Count MPV Neut % (Auto) Lymph % (Auto) [place] % (Auto) Eos % (Auto) Baso % (Auto) Neut # (Auto) Lymph # (Auto) [place] # (Auto) Eos # (Auto) Baso # (Auto) Immature Gran % Nucleated RBC % Immature Gran # Nucleated RBCs # Immature Plt Fraction INR 1.1 PT Patient/Control Mix 12.1 Sodium Potassium Chloride Carbon Dioxide Anion Gap BUN Creatinine GFR Calculation BUN/Creatinine Ratio Glucose Hemoglobin A1c 5.8 Calculated Osmolality Calcium Magnesium Troponin I < 0.015 Triglycerides Cholesterol LDL Cholesterol VLDL Cholesterol HDL Cholesterol Heart Disease Risk Ratio Free T4 TSH 3rd Generation 05/13/17 05/14/17 05/14/17 21:20 03:57 03:57 WBC 5.6 RBC 4.44 Hgb 14.1 Hct 41.5 MCV 93.5 MCH 32 MCHC 34.0 RDW 13.1 Plt Count 171 MPV 13.0 H Neut % (Auto) 43.6 Lymph % (Auto) 43.8 [place] % (Auto) 9.9 Eos % (Auto) 2.0 Baso % (Auto) 0.5 Neut # (Auto) 2.5 Lymph # (Auto) 2.5 [place] # (Auto) 0.6 Eos # (Auto) 0.1 Baso # (Auto) 0.0 Immature Gran % 0.2 Nucleated RBC % 0.0 Immature Gran # 0.01 Nucleated RBCs # 0.00 Immature Plt Fraction 0.0 INR PT Patient/Control Mix Sodium 139 Potassium 3.7 Chloride 103 Carbon Dioxide 29 Anion Gap 10.7 BUN 15 Creatinine 0.90 GFR Calculation 83 BUN/Creatinine Ratio 16.00 Glucose 105 Hemoglobin A1c Calculated Osmolality 277.5 Calcium 8.5 Magnesium Troponin I < 0.015 Triglycerides 134 Cholesterol 174 LDL Cholesterol 95.0 VLDL Cholesterol 26.8 HDL Cholesterol 58 Heart Disease Risk Ratio 3.00 Free T4 TSH 3rd Generation
== END 2017-05-14 10:54 | disposition home or self-care (01) ==
LOC: N.ED 08:50 → N.EDINP 08:50 → SUATTDRO 13:51 → N.TELES 15:24
PROVIDERS: ADMIT Internal Medicine; ATTEND Hospitalist